=== PATIENT | female | born 1995 | race Caucasian/White ===

== ENCOUNTER 2024-11-05 17:43 | Emergency (ER) | payer BC, SELFPAY ==
[2024-11-05 17:54] VITALS: BP 117/58; PULSE 76; RESP 16; TEMP 36.6; O2SAT 100
--- NOTE | 2024-11-05 18:12 | ED_ITS ---
HPI - Ear Problem General Chief complaint: Ear Stated complaint: FLUID IN EAR Time Seen by Provider: 11/05/24 18:12 Source: patient, RN notes reviewed and old records reviewed Mode of arrival: ambulatory Limitations: no limitations History of Present Illness HPI Narrative: 29 year old presents to [facility] care with complaints of decreased hearing to bilateral ears but especially the right ear for the past few days. Patient received oral antibiotic of Augmentin on 11/01/2024 and has been taking this medication for URI symptoms but patient reports has not helped her ears. Patient states that she put some Debrox in her ears and did get some ear wax out of her ears but continues to feel plugged like full of wax. MD Complaint: decreased hearing and other (cerumen impaction) Location: bilateral Severity: mild Discharge from ear: Reports no Treatment prior to arrival: attempt at ear wax removal and other (presently on Amoxicillin with Clavulanate) Related Data Home Medications ?Medication ?Instructions ?Recorded ?Confirmed ?Last Taken ?Type amoxicillin 875 mg-potassium 1 tablet PO Q12H 11/06/24 11/06/24 Unknown History clavulanate 125 mg tablet aripiprazole 2 mg tablet 2 mg PO DAILY 11/06/24 11/06/24 Unknown History citalopram 40 mg tablet 40 mg PO DAILY 11/06/24 11/06/24 Unknown History testosterone 2 pump topical 11/06/24 Unknown History Allergies Allergy/AdvReac Type Severity Reaction Status Date / Time No Known Allergies Allergy Mild Verified 12/23/09 14:01 Review of Systems Review of Systems: CONSTITUTIONAL: Denies malaise, chills, sweats, or fever. EYES: Denies visual changes, redness, or discharge. ENT: Reports rhinorrhea, congestion, sinus pain,bilateral ear pressure and decreased hearing and no sore throat. CARDIOVASCULAR: Denies chest pain, palpitations, or edema. RESPIRATORY: Reports cough.? Denies dyspnea. GASTROINTESTINAL: Denies abdominal pain, nausea, vomiting, diarrhea SKIN: Denies rash or itching. MUSCULOSKELETAL: Denies myalgia. NEUROLOGIC: Denies headache. All systems reviewed & are unremarkable except as noted in HPI and below PMFSH Past Medical History Medical History (Updated 11/09/24 @ 08:59 by Mere Lucero NP) Anxiety and depression Social History Social History (Updated 12/14/24 @ 09:05 by TAVON Curran Smoking status: Never smoker Alcohol intake: unknown Substance use: unknown Living arrangements: with family Comments At time of signature, agree with nursing past medical, surgical, social and family history. There is no relevant family history pertinent to the presenting complaint Exam Narrative: GENERAL: Well-appearing, well-nourished, and in no acute distress. HEAD: Normocephalic EYES: PERRLA, conjunctivae clear ENT: Nares clear, turbinates edematous and erythematous, clear discharge. Mucous membranes moist. TM pearly montiel with dull light reflex bilaterally; no tragal tenderness. Oropharynx erythematous without lesions. Tonsils not enlarged and without exudate, no drooling, no hoarseness, no trismus, uvula midline.post nasal drainage NECK: Supple. No lymphadenopathy CHEST: Clear to auscultation, breath sounds equal. No wheezing, rhonchi, rales, or stridor. No respiratory distress, speaks in full sentences.dry cough SAO2 100% on room air HEART: Regular rate and rhythm. No murmur heard. SKIN: Warm, dry, no rash. NEURO: Alert and oriented x3. PSYCH: Normal mood and affect Course Course Emergency Course: Patient is aware of diagnosis, understands and agrees to treatment plan.? Anticipatory guidance given.? Patient agrees to follow-up as directed and is aware of reasons to seek care at the emergency department. Portions of this record may have been created with voice recognition software Level of Care: Express Care Visit Vital Signs Vital signs: Vital Signs Temperature 36.6 C 11/05/24 17:54 Pulse Rate 76 11/05/24 17:54 Respiratory Rate 16 11/05/24 17:54 Blood Pressure 117/58 L 11/05/24 17:54 Pulse Oximetry 100 11/05/24 17:54 Temperature 36.6 C 11/05/24 17:54 Pulse Rate 76 11/05/24 17:54 Respiratory Rate 16 11/05/24 17:54 Blood Pressure 117/58 L 11/05/24 17:54 Pulse Oximetry 100 11/05/24 17:54 Reviewed Procedures Ear Wax Removal Both Ears: Ear Wax Removal Date: 11/05/24 Ear Wax Removal Time: 18:20 Cerumenolytic Used: 5-10% Sodium Bicarb solution Results: Re-examined: some cerumen remains TM Examination: TM(s) intact, normal appearance Ear Canal Exam: atraumatic Patient Tolerated Procedure: well Complications: no problems Technique: ear canal irrigated Additional Comments: Patient tolerated irrigation of warm water with hydrogen peroxide solution to bilateral ears well, large amount removed from right ear, moderate amount from her left ear. Bilateral TM's without redness and ear canals without irritation. Medical Decision Making Differential Diagnosis Differential Diagnosis: bilateral hearing decrease, cerumen impaction bilateral ears, Medical Records Medical records reviewed: Yes I reviewed the external patient's medical records. Vital Signs Vital Signs: Vital Signs Temperature 36.6 C 11/05/24 17:54 Pulse Rate 76 11/05/24 17:54 Respiratory Rate 16 11/05/24 17:54 Blood Pressure 117/58 L 11/05/24 17:54 Pulse Oximetry 100 11/05/24 17:54 Temperature 36.6 C 11/05/24 17:54 Pulse Rate 76 11/05/24 17:54 Respiratory Rate 16 11/05/24 17:54 Blood Pressure 117/58 L 11/05/24 17:54 Pulse Oximetry 100 11/05/24 17:54 reviewed Critical Care Time Critical Care Time Critical Care Time: No Discharge Plan Discharge Clinical Impression: Hearing loss of both ears due to cerumen impaction Patient Disposition: Home, Self-Care Condition: Stable Instructions: Carbamide Peroxide (Into the ear) Additional Instructions: Increase fluids especially juices and water [id number] cough and cold medicine of your choice for your symptoms Tylenol or ibuprofen fever pain Place Debrox 10 drops in each ear 1 time weekly to keep wax softeed heat to the face 20-30 minutes 4-6 times a day for pain Salt water gargles, throat lozenges or throat sprays as desired Antibiotic as directed--finish the medication as previously prescribed Zyrtec Claritin or Louise If your symptoms persist, change or worsen significantly before you can contact your personal physician then please, without delay, go to the emergency department for further evaluation. Follow-up with PCP in 7-10 days or sooner if needed Patient Language: Khmer Prescriptions: No Action amoxicillin-pot clavulanate 875-125 mg tablet 1 tablet PO Q12H aripiprazole 2 mg tablet 2 mg PO DAILY citalopram 40 mg tablet 40 mg PO DAILY testosterone 20.25 mg/1.25 gram (1.62 %) gel in metered-dose pump 2 pump topical Follow-up/Referrals: PHYSICIAN,LIFE SCIENCE TAXONOMIST [Primary Care Provider] - Time of Disposition: 18:34 Quality Theodora Coma Scale Eyes: Open Verbal: Oriented and Alert Motor: Follows Commands Theodora Coma Total Score: 15
== END 2024-11-05 18:36 | disposition home or self-care (01) ==
PROVIDERS: Emergency Provider Registered Nurse
DX: H61.23 Impacted cerumen, bilateral (principal)
CPT/HCPCS: 69209; 99202; 99212; G0463

== ENCOUNTER 2024-11-06 13:46 | Emergency (ER) | payer BC, SELFPAY ==
[2024-11-06 13:56] VITALS: BP 110/64; PULSE 73; RESP 16; TEMP 36.6; O2SAT 100
--- NOTE | 2024-11-06 14:34 | ED_ITS ---
HPI - Ear Problem General Chief complaint: Ear Stated complaint: Right Ear Problem Source: patient Mode of arrival: ambulatory Limitations: no limitations History of Present Illness HPI Narrative: 29-year-old female presented for complaint of right ear pressure for 2 days. She states she cannot hear out of the ear. However she was seen in urgent care last night to have cerumen irrigated. She states some ear wax remains. She has used D Joey strep today. He is also on Augmentin for recent cough. Denies tinnitus, dizziness, ear drainage, nausea, vomiting, fevers or chills. MD Complaint: ear pain Related Data Home Medications ?Medication ?Instructions ?Recorded ?Confirmed ?Last Taken ?Type amoxicillin 875 mg-potassium 1 tablet PO Q12H 11/06/24 11/06/24 Unknown History clavulanate 125 mg tablet aripiprazole 2 mg tablet 2 mg PO DAILY 11/06/24 11/06/24 Unknown History citalopram 40 mg tablet 40 mg PO DAILY 11/06/24 11/06/24 Unknown History testosterone 2 pump topical 11/06/24 Unknown History Allergies Allergy/AdvReac Type Severity Reaction Status Date / Time No Known Allergies Allergy Mild Verified 12/23/09 14:01 Review of Systems Review of Systems: CONSTITUTIONAL: Denies malaise, chills, or fever. EYES: Denies visual changes, redness, or discharge. ENT: Denies rhinorrhea, congestion, sinus pain, and sore throat. Reports ear pressure CARDIOVASCULAR: Denies chest pain, palpitations, or edema. RESPIRATORY: Denies cough or dyspnea. MUSCULOSKELETAL: Denies myalgia. NEUROLOGIC: Denies headache. All systems reviewed & are unremarkable except as noted in HPI and below PMFSH Comments At time of signature, agree with nursing past medical, surgical, social and family history. There is no relevant family history pertinent to the presenting complaint Exam Narrative: GENERAL: Well-appearing, well-nourished, and in no acute distress. ENT: Nares clear. Mucous membranes moist. Left TM unable to visualize due to excess cerumen. Right canal with small amount of dried cerumen. no tragal tenderness. CHEST: Clear to auscultation, breath sounds equal. No wheezing, rhonchi, rales, or stridor. No respiratory distress, speaks in full sentences. HEART: Regular rate and rhythm. No murmur heard. SKIN: Warm, dry, no rash. NEURO: Alert and oriented x3. PSYCH: Normal mood and affect Course Course Emergency Course: Patient is aware of diagnosis, understands and agrees to treatment plan. Anticipatory guidance given. Patient agrees to follow-up as directed and is aware of reasons to seek care at the emergency department. Portions of this record may have been created with voice recognition software Level of Care: Express Care Visit Vital Signs Vital signs: Vital Signs Temperature 97.8 F 11/06/24 13:56 Pulse Rate 73 11/06/24 13:56 Respiratory Rate 16 11/06/24 13:56 Blood Pressure 110/64 11/06/24 13:56 Pulse Oximetry 100 11/06/24 13:56 Oxygen Delivery Room Air 11/06/24 13:56 Temperature 97.8 F 11/06/24 13:56 Pulse Rate 73 11/06/24 13:56 Respiratory Rate 16 11/06/24 13:56 Blood Pressure 110/64 11/06/24 13:56 Pulse Oximetry 100 11/06/24 13:56 Oxygen Delivery Room Air 11/06/24 13:56 Reviewed Procedures Ear Wax Removal Right Ear: Ear Wax Removal Date: 11/06/24 Cerumenolytic Used: other ( equal parts hydrogen peroxide and warm water) Results: Re-examined: some cerumen remains (scant amount remains) TM Examination: TM(s) intact, normal appearance Ear Canal Exam: atraumatic Patient Tolerated Procedure: well and no complications Technique: ear canal irrigated and ear canal curetted Additional Comments: Tolerated cerumen removal, however she continues to reports 'fullness' to right ear. Symptoms likely 2/2 serous otitis. Medical Decision Making MDM Narrative Medical decision making narrative: discussed physical exam findings, excess cerumen removed from right canal however sx are likely due to serous otitis. Advised supportive measures and signs/symptoms to go to the ER. Patient is appropriate for outpatient treatment and follow-up. Differential Diagnosis Differential Diagnosis: Coronavirus, strep pharyngitis, allergic rhinitis, upper respiratory tract infection, sinusitis, rhinosinusitis, nasopharyngitis, viral pharyngitis, otitis media, otitis externa, eustachian tube dysfunction, foreign body, cerumen impaction. Vital Signs Vital Signs: Vital Signs Temperature 97.8 F 12/11/24 13:56 Pulse Rate 73 11/06/24 13:56 Respiratory Rate 16 11/06/24 13:56 Blood Pressure 110/64 11/06/24 13:56 Pulse Oximetry 100 11/06/24 13:56 Oxygen Delivery Room Air 11/06/24 13:56 Temperature 97.8 F 11/06/24 13:56 Pulse Rate 73 11/06/24 13:56 Respiratory Rate 16 11/06/24 13:56 Blood Pressure 110/64 11/06/24 13:56 Pulse Oximetry 100 11/06/24 13:56 Oxygen Delivery Room Air 11/06/24 13:56 Discharge Plan Discharge Clinical Impression: Cerumen impaction Qualifiers: Laterality: right Qualified Code(s): H61.21 - Impacted cerumen, right ear Acute serous otitis media Qualifiers: Laterality: right Recurrence: non-recurrent Qualified Code(s): H65.01 - Acute serous otitis media, right ear Patient Disposition: Home, Self-Care Condition: Stable Instructions: Antibiotic Form, Fluid In The Ear (Serous Otitis Media) (ED) Additional Instructions: Recommend antihistamine such as Benadryl, Zyrtec or Louise for sinus congestion Flonase nasal spray, 1 spray in each nostril once daily until symptoms improve Symptomatic treatment includes: rest, fluids, and increase humidity of the air at home. Tylenol 1000mg every 8 hours as needed to reduce fever, pain Please use a earwax softening agent such as [id number] Debrox or a mixture of 1 part hydrogen peroxide in 1 part warm water several times weekly to keep your earwax soft and prevent further impaction. Please schedule a follow-up visit with your personal physician within 3-5days. If your symptoms persist, change or worsen significantly, go to the emergency department for further evaluation. Patient Language: Grenadian Prescriptions: No Action amoxicillin-pot clavulanate 875-125 mg tablet 1 tablet PO Q12H aripiprazole 2 mg tablet 2 mg PO DAILY citalopram 40 mg tablet 40 mg PO DAILY testosterone 20.25 mg/1.25 gram (1.62 %) gel in metered-dose pump 2 pump topical Follow-up/Referrals: PHYSICIAN,EVP AND CHIEF OPERATING OFFICER [Primary Care Provider] - Time of Disposition: 14:51
== END 2024-11-06 14:55 | disposition home or self-care (01) ==
PROVIDERS: Emergency Provider Nurse Practitioner Family
DX: H61.21 Impacted cerumen, right ear (principal); H65.01 Acute serous otitis media, right ear; F32.A Depression, unspecified; Z87.890 Personal history of sex reassignment
CPT/HCPCS: 69210; 99212; G0463